=== PATIENT | female | born 1985 | race African-American/Black ===

== ENCOUNTER 2017-06-14 08:55 | Emergency (ER) | payer SELFPAY ==
[2017-06-14] MEDS ORDERED: Ketorolac Tromethamine 60 MG/2 ML VIAL ONE (09:30)
--- NOTE | 2017-06-14 09:57 | RAD ---
TWO VIEW CHEST: Comparison: 06-18-16 Indication: Progressive chest pain. FINDINGS: No consolidation, effusion or pneumothorax. Cardiac silhouette is normal in size. Osseous structures are intact. IMPRESSION: No focal consolidation. POS: [facility]
== END 2017-06-14 10:41 | disposition home or self-care (01) ==
LOC: ERS 08:55
DX: M54.6 Pain in thoracic spine (principal); I10 Essential (primary) hypertension; J45.909 Unspecified asthma, uncomplicated; F41.9 Anxiety disorder, unspecified; F17.210 Nicotine dependence, cigarettes, uncomplicated
CPT/HCPCS: 71046; 93005; 96372; J1885